=== PATIENT | male | born 1950 ===

== ENCOUNTER 2018-11-10 06:44 | Day surgery (SDC) ==
[2018-11-10] MEDS: TETRACAINE 0.5% UNIT-DOSE OP PRN ×2 (07:20→08:25)
[2018-11-10] MEDS: BETADINE OPTH PREP OP PRN ×2 (07:20→08:26)
[2018-11-10] MEDS: CYCLOGYL 2% OPTH OP PRN ×3 (07:21→07:31)
[2018-11-10] MEDS ORDERED: BRIMONIDINE TARTRATE 0.2% OPTH SOL OP PRN (07:30)
[2018-11-10] MEDS ORDERED: LIDOCAINE 1%/PHENYLEPHRINE 1.5% BSS (SURGERY) INTRAOCULA ONE (07:30)
[2018-11-10] MEDS ORDERED: ZOFRAN 4 MG/2 ML IVP ONE (07:30)
[2018-11-10] MEDS ORDERED: DEX-MOXI-KETOR OPTH INJ 1/0.5/0.4 MG/ML IO ONE (07:30)
[2018-11-10] MEDS ORDERED: LIDOCAINE 1% 20 ML MDV ID STA (07:30)
[2018-11-10] MEDS ORDERED: BSS WITH EPINEPHRINE OP ONE (07:30)
[2018-11-10] MEDS ORDERED: ZOFRAN 4 MG/2 ML ONE (08:15)
[2018-11-10] MEDS ORDERED: VERSED ONE (08:15)
[2018-11-10] MEDS ORDERED: SUBLIMAZE ONE (08:15)
[2018-11-10 12:21] VITALS: TEMP 97.6
[2018-11-12 14:19] VITALS: BP 132/67
== END 2018-11-10 09:45 | disposition home or self-care (01) ==
LOC: SURG 06:44
PROVIDERS: ATTEND Ophthalmology
DX: H25.812 Combined forms of age-related cataract, left eye (principal)

== ENCOUNTER 2018-11-23 07:01 | Day surgery (SDC) ==
[2018-11-23] MEDS: TETRACAINE 0.5% UNIT-DOSE OP PRN ×2 (07:15→08:17)
[2018-11-23] MEDS: BETADINE OPTH PREP OP PRN ×2 (07:15→08:17)
[2018-11-23] MEDS: CYCLOGYL 2% OPTH OP PRN ×3 (07:16→07:26)
[2018-11-23] MEDS ORDERED: LIDOCAINE 1% 20 ML MDV ID STA (07:22)
[2018-11-23] MEDS ORDERED: DEX-MOXI-KETOR OPTH INJ 1/0.5/0.4 MG/ML IO ONE (07:22)
[2018-11-23] MEDS ORDERED: LIDOCAINE 1%/PHENYLEPHRINE 1.5% BSS (SURGERY) INTRAOCULA ONE (07:22)
[2018-11-23] MEDS ORDERED: BRIMONIDINE TARTRATE 0.2% OPTH SOL OP PRN (07:22)
[2018-11-23] MEDS ORDERED: BSS WITH EPINEPHRINE OP ONE (07:22)
[2018-11-23] MEDS ORDERED: ZOFRAN 4 MG/2 ML IVP ONE (07:22)
[2018-11-23 07:28] VITALS: TEMP 97.7
[2018-11-23] MEDS ORDERED: VERSED ONE (08:20)
[2018-11-23] MEDS ORDERED: ZOFRAN 4 MG/2 ML ONE (08:20)
[2018-11-23] MEDS ORDERED: SUBLIMAZE ONE (08:20)
[2018-11-23 09:35] VITALS: BP 117/74
== END 2018-11-23 09:05 | disposition home or self-care (01) ==
LOC: SURG 07:01
PROVIDERS: ATTEND Ophthalmology
DX: H25.11 Age-related nuclear cataract, right eye (principal)